=== PATIENT | female | born 1955 | race Caucasian/White ===

== ENCOUNTER 2020-08-12 12:50 | Outpatient (CLI) | payer BC, MEDICARE | END 2020-08-12 12:51 | disposition home or self-care (01) | LOC: CSHLAB 12:50 | PROVIDERS: ATTEND Obstetrics & Gynecology | DX: Z01.812 Encounter for preprocedural laboratory examination (principal); Z20.822 Contact with and (suspected) exposure to COVID-19; R87.613 High grade squamous intraepithelial lesion on cytologic smear of cervix (HGSIL) | CPT/HCPCS: 85027; 86850; 86900; 86901; 87635; U0003; U0005 ==

== ENCOUNTER 2020-08-17 06:49 | Day surgery (SDC) | payer BC, MEDICARE ==
[2020-08-12 14:28] LABS: Hemoglobin 14.2 g/dL (12.0-15.5); Mean Corpuscular HGB CONC 33.1 g/dL (32.0-36.0); Mean Corpuscular Hemoglobin 31.2 pg (27.0-33.0); Mean Corpuscular Volume 94.3 fl (81.6-98.3); Mean Platelet Volume 9.5 fl (7.4-10.4); Platelet Count 218 10x3/uL (150-450); RBC Distribution Width 12.9 % (11.5-14.5); Red Blood Cell (RBC) Count 4.55 10x6/uL (3.90-5.03); White Blood Cell (WBC) Count 6.2 10x3/uL (3.5-10.5)
[2020-08-12 20:56] LABS: SARS-CoV-2 PCR by NAA Not Detected (NotDetected)
[2020-08-16 12:35] VITALS: BMI 25.2
[2020-08-17] MEDS ORDERED: Lidocaine 1% MPF 2 ML VIAL ONE (07:08)
[2020-08-17] MEDS ORDERED: PROPOFOL 20 ML ONE ×2 (07:34→07:54)
[2020-08-17] MEDS ORDERED: Fentanyl 100 MCG/2 ML VIAL ONE (07:34)
[2020-08-17] MEDS ORDERED: Lidocaine 1% PF 5 ML VIAL ONE (07:34)
[2020-08-17] MEDS ORDERED: Lidocaine 1% w/Epinephrine 1:100K 20 ML VIAL ONE (07:36)
[2020-08-17] MEDS ORDERED: Dexamethasone 20 MG/5 ML VIAL ONE (07:55)
[2020-08-17] MEDS ORDERED: Ondansetron PF 4 MG/2 ML Vial ONE (07:55)
[2020-08-17] MEDS ORDERED: Ketorolac Tromethamine 15 MG/ML VIAL ONE (08:10)
== END 2020-08-17 09:40 | disposition home or self-care (01) ==
LOC: CSHSDC 06:49
PROVIDERS: ATTEND Obstetrics & Gynecology
PROC: 0UBC7ZX Excision of Cervix, Via Natural or Artificial Opening, Diagnostic (ICD-10-PCS; principal; 2020-08-17)
DX: N87.1 Moderate cervical dysplasia (principal); Z88.2 Allergy status to sulfonamides
CPT/HCPCS: 85027; 86850; 86900; 86901; 87635; 88307; J0690; J1100; J1885; J2405; J2704; J3010; U0003; U0005